=== PATIENT | female | born 1935 | race Caucasian/White ===

== ENCOUNTER 2021-05-27 21:23 | Emergency (ER) | payer BC, MEDICARE ==
[~2021-05-27] VITALS: Ht 162.6 cm; Wt 59.0 kg
--- NOTE | 2021-05-27 21:36 | NUR ---
PT BIB RA 839 FROM [facility] FOR C/O WEAKNESS DUE TO UTI. NO SOB OR LABORED BREATHING, AFEBRILE. DENIES CP/PRESSURE.
--- NOTE | 2021-05-27 21:52 | NUR ---
DR. NGUYEN A BEDSIDE, MSE IN PROGRESS.
[2021-05-27] MEDS ORDERED: ACETAMINOPHEN ES 500 MG TABLET PO ONE (22:00)
[2021-05-27 22:10] LABS: HEMATOCRIT 32.6 % (31.2-41.9); MEAN CORPUSCULAR HEMOGLOBIN 30.1 uug (24.7-32.8); MEAN CORPUSCULAR VOLUME 87.9 fL (75.5-95.3); PLATELET COUNT (AUTO) 124 K/uL (179-408)
[2021-05-27 22:19] LABS: CREATININE 1.1 mg/dL (0.6-1.3); POTASSIUM 3.2 mmol/L (3.5-5.1)
[2021-05-27 22:31] LABS: BILIRUBIN,DIRECT 0.3 mg/dL (0.0-0.2); BILIRUBIN,TOTAL 0.7 mg/dL (0.2-1.0); TOTAL PROTEIN, SERUM 6.1 g/dL (6.4-8.2)
--- NOTE | 2021-05-27 23:36 | NUR ---
PT AWAKE AND RESTING IN BED, NOTED TO BE WATCHING TV. DENIES ANY PAIN/DISCOMFORT.
[2021-05-27] MEDS ORDERED: ACETAMINOPHEN ES 500 MG TABLET ONE (23:38)
[2021-05-27 23:51] LABS: *BILIRUBIN,URIN NEGATIVE (NEGATIVE); *BLOOD, URINE 2+ (NEGATIVE); *CLARITY,URINE CLOUDY (CLEAR); *COLOR,URINE YELLOW (YELLOW); *KETONES,URINE NEGATIVE (NEGATIVE); LEUKOCYTE ESTERASE ,URINE 2+ (NEGATIVE); NITRITE, URINE POSITIVE (NEGATIVE); UGLUCOSE NEGATIVE (NEGATIVE)
[2021-05-28 00:04] LABS: BACTERIA,URINE MANY /HPF (NONE SEEN); SQUAMOUS EPITHELIAL CELL,UR FEW /HPF (NONE SEEN); WBC,URINE TNTC /HPF (0-3)
[2021-05-28] MEDS ORDERED: NITROFURANTOIN/NITROFURAN MAC 100 MG CAPSULE PO ONE ×2 (00:15→00:30)
[2021-05-28] MEDS ORDERED: CEFTRIAXONE 1 G in IV DEXTROSE 5% 50 ML IV ONE (00:15)
[2021-05-28] MEDS ORDERED: CEFTRIAXONE /D5W 50ML IVPB **ER PYXIS IV ONE (00:30)
[2021-05-28] MEDS ORDERED: IV NORMAL SALINE 500 ML BAG IV ONE (00:45)
[2021-05-28] MEDS ORDERED: NITR-84 PO (00:47)
[2021-05-28] MEDS ORDERED: CEPH500T PO (00:47)
--- NOTE | 2021-05-28 01:18 | NUR ---
Patient discharged to home in stable condition. Written and verbal after care instructions given. Patient verbalizes understanding of instructions. Stressed follow up or return to ER for worsening s/s. Steady gait. Picked up by sister and daugther in law. Denies any pain/discomfort. No n/v/d.
[2021-05-28 01:52] VITALS: BP 128/68
== END 2021-05-28 01:30 ==
LOC: ER 21:26
DX: N39.0 Urinary tract infection, site not specified (principal); G30.9 Alzheimer's disease, unspecified; F02.80 Dementia in other diseases classified elsewhere, unspecified severity, without behavioral disturbance, psychotic disturbance, mood disturbance, and anxiety; K21.9 Gastro-esophageal reflux disease without esophagitis; R50.9 Fever, unspecified; Z20.822 Contact with and (suspected) exposure to COVID-19; Z88.0 Allergy status to penicillin; Z88.2 Allergy status to sulfonamides; I49.1 Atrial premature depolarization
CPT/HCPCS: 36415; 71045; 80048; 80076; 81001; 83880; 84484; 85025; 85379; 85730; 87086; 87426; 93005; 96361; 96374; 99285; J0696; 70030-TC; A4663; A9150; C1758; J7040

== ENCOUNTER 2021-08-09 12:34 | Inpatient (IN) | payer BC ==
[~2021-08-09] VITALS: Ht 162.6 cm; Wt 44.0 kg
[~2021-08-09 12:34] MED LIST: CEPH500T PO; NITR-84 PO
[2021-08-09] MEDS ORDERED: MORPHINE SULFATE 2 MG/1 ML DISP.SYRIN IV ONE ×3 (13:00→18:15)
[2021-08-09] MEDS ORDERED: ONDANSETRON 4 MG/2 ML VIAL IV ONE (13:00)
[2021-08-09] MEDS ORDERED: IV NORMAL SALINE 500 ML BAG IV ONE (13:00)
[2021-08-09] MEDS ORDERED: AMLO-212 PO (13:05)
[2021-08-09] MEDS ORDERED: FLUO40CA8 PO (13:05)
[2021-08-09] MEDS ORDERED: CRANBERRY TAB PO (13:05)
[2021-08-09] MEDS ORDERED: ASPI81TA31 PO (13:05)
[2021-08-09] MEDS ORDERED: MIRT-93 PO (13:05)
[2021-08-09] MEDS ORDERED: LOSA100T31 PO (13:05)
[2021-08-09] MEDS ORDERED: ASCO-375 PO (13:05)
[2021-08-09] MEDS ORDERED: GALA4TAB11 PO (13:05)
[2021-08-09] MEDS ORDERED: ACET-73 PO (13:05)
[2021-08-09] MEDS ORDERED: ZINC56.713 TP (13:05)
[2021-08-09] MEDS ORDERED: CHOL10005 PO (13:05)
[2021-08-09] MEDS ORDERED: PANT40TA49 PO (13:05)
[2021-08-09] MEDS ORDERED: FOLI1TAB94 PO (13:05)
[2021-08-09] MEDS ORDERED: MORPHINE SULFATE 2 MG/1 ML DISP.SYRIN ONE ×3 (13:34→18:15)
[2021-08-09] MEDS ORDERED: ONDANSETRON 4 MG/2 ML VIAL ONE ×2 (13:34→15:02)
[2021-08-09 13:36] LABS: HEMATOCRIT 27.9 % (31.2-41.9); MEAN CORPUSCULAR VOLUME 89.6 fL (75.5-95.3); PLATELET COUNT (AUTO) 178 K/uL (179-408)
[2021-08-09 13:37] LABS: CREATININE 0.9 mg/dL (0.6-1.3); POTASSIUM 3.9 mmol/L (3.5-5.1)
[2021-08-09 13:42] LABS: BILIRUBIN,DIRECT 0.2 mg/dL (0.0-0.2); BILIRUBIN,TOTAL 0.6 mg/dL (0.2-1.0); TOTAL PROTEIN, SERUM 6.2 g/dL (6.4-8.2)
--- NOTE | 2021-08-09 13:55 | NUR ---
XR done at bedside. Pt taken for CT scan via gurney by tech. Pt in stable condition at time of transport. Unable to place hutson before transport. Ok to cancel order per provider.
--- NOTE | 2021-08-09 14:10 | NUR ---
Pt brought back from CT. Pt denies any pain at this time. Son at bedside.
[2021-08-09] MEDS ORDERED: ACETAMINOPHEN 325 MG TABLET PO PRN (15:00)
[2021-08-09] MEDS ORDERED: MAGNESIUM HYDROXIDE 30 ML LIQUID UDC PO PRN (15:00)
[2021-08-09] MEDS ORDERED: ONDANSETRON 4 MG/2 ML VIAL IV PRN (15:00)
[2021-08-09] MEDS ORDERED: REMEDY ESSENTIAL ZINC PASTE 113 GM TP PRN (15:00)
--- NOTE | 2021-08-09 15:00 | NUR ---
Pt accepted by [facility] ([facility]). Both spoke with Dr. Toledo.
[2021-08-09] MEDS ORDERED: DEXAMETHASONE SOD PHOSPHATE 4 MG INJ ONE (15:02)
[2021-08-09] MEDS ORDERED: KETOROLAC TROMETHAMINE 30 MG INJ ONE (15:02)
[2021-08-09] MEDS ORDERED: CEFAZOLIN 1 G VIAL ONE (15:02)
[2021-08-09] MEDS ORDERED: ETOMIDATE 20 MG/10 ML VIAL ONE (15:02)
[2021-08-09] MEDS ORDERED: LIDOCAINE-MPF 2% 5 ML VIAL ONE (15:02)
[2021-08-09] MEDS ORDERED: PROPOFOL 200 MG/20 ML BOTTLE ONE (15:02)
[2021-08-09] MEDS ORDERED: EPHEDRINE SULFATE 50 MG/ML AMPUL ONE (15:02)
--- NOTE | 2021-08-09 18:04 | NUR ---
Pt states slight improvement, but still has pain to (L) hip area. Provider notified.
--- NOTE | 2021-08-09 19:15 | NUR ---
[facility]ie[facility] using SBAR method. Pt is AAOx3, slightly pale with good appearance. Pt is still very much feeling the MS. Denies any pain, n/v, sob, dizziness. VSS, SBP slightly elevated, EDMD aware. Nothing pending, pt in holding position awaitng room assignment, admitted for femoral head fx, scheduled for surger in am. no s/sx of distress present.
--- NOTE | 2021-08-09 19:20 | NUR ---
Pt endorsed to shiftman
--- NOTE | 2021-08-09 20:10 | NUR ---
Admitting called with room assignment. Pt going to room 317.
--- NOTE | 2021-08-09 20:12 | NUR ---
Called tele floor to give report. US told me that RN is busy and would call back soon. I said ill be anticipating a call back.
[2021-08-09] MEDS: MIRTAZAPINE 15 MG TABLET PO SCH ×2 (21:00→22:36)
--- NOTE | 2021-08-09 21:00 | NUR ---
TeleRN Paula called back to recieve report. Thorough report given using SBAR method. Given green light to transport pt.
[2021-08-09 22:00] VITALS: BP 152/58
--- NOTE | 2021-08-09 22:00 | NUR ---
Pt transfered upstairs without difficulty. Pt placed on bed with help from FOOD ANALYST. Asisted withtaking pic of sacral area. Pt aaox3, in good spirit, denies pain, n/v, sob, or discomfort. Slight pain with movement. No s/sxof distress noted.
[2021-08-09] MEDS: IV D5W-0.45% NS +20 KCL 1,000 ML IV PRN (23:17)
[2021-08-09 23:30] VITALS: BP 142/78
[2021-08-10] VITALS (8 sets, daily range): BP systolic 115–153; BP diastolic 50–58
[2021-08-10 00:45] LABS: *BILIRUBIN,URIN NEGATIVE (NEGATIVE); *CLARITY,URINE CLOUDY (CLEAR); *COLOR,URINE YELLOW (YELLOW); *KETONES,URINE NEGATIVE (NEGATIVE); *UROBILINOGEN,URINE 0.2 E.U./dl (NORMAL); LEUKOCYTE ESTERASE ,URINE 2+ (NEGATIVE); NITRITE, URINE POSITIVE (NEGATIVE); PH,URINE 5.5 (5.0-8.0); UGLUCOSE NEGATIVE (NEGATIVE)
[2021-08-10 00:54] LABS: *BLOOD, URINE TRACE (NEGATIVE)
[2021-08-10 00:59] LABS: BACTERIA,URINE MANY /HPF (NONE SEEN); SQUAMOUS EPITHELIAL CELL,UR FEW /HPF (NONE SEEN); WBC,URINE TNTC /HPF (0-3)
[2021-08-10 06:28] LABS: HEMATOCRIT 24.8 % (31.2-41.9); MEAN CORPUSCULAR HEMOGLOBIN 29.9 uug (24.7-32.8); MEAN CORPUSCULAR VOLUME 89.5 fL (75.5-95.3); PLATELET COUNT (AUTO) 166 K/uL (179-408)
[2021-08-10] MEDS: PANTOPRAZOLE SODIUM 40 MG TABLET.DR PO SCH (06:34)
--- NOTE | 2021-08-10 06:56 | NUR ---
Pt arrived at 2140 via gurney for L intertrochanter fx. On room air saturating at 98%. AO x 2, forgetful and confused. No signs of acute distress noted. NPO status. F/C in place, draining well. Planned sx 08/10/21 at 11:[address] Alex for ORIF of Left hip intramedullary nail. IV in right FA running D5W 07/12 NS + 20 meq KCL at 75mls/hr, tolerating. Slept through the night. Easily arousable to name and touch. Call lights within reach. Safety measures maintained. Admission packet completed. Will endorse to am shift.
[2021-08-10 06:59] LABS: CREATININE 0.7 mg/dL (0.6-1.3); MAGNESIUM 1.9 mg/dL (1.8-2.4); PHOSPHOROUS 3.5 mg/dL (2.5-4.9); POTASSIUM 4.2 mmol/L (3.5-5.1)
--- NOTE | 2021-08-10 08:00 | NUR ---
Preop checklist done. PT left leg shorter than the right and externally rotated. Applied ice on left hip for pain management. IVF infusing as ordered. on right forearm #20. Consent signed for surgery.
--- NOTE | 2021-08-10 08:00 | NUR ---
Fall precaution implemented. Mittens on. Pt attempting to pull his iv out. Bed alarm on. PT confused. PT was able to take pills crushed with apple sauce with ST at bedside evaluation. Turned pt q 2 hrs implemented. Call light is within reach. Addendum: 08/10/21 at 1852 by SULAIMAN GOLDSTEIN RN Wrong pt
[2021-08-10] MEDS: FLUOXETINE HCL 20 MG CAPSULE PO SCH (08:42)
[2021-08-10] MEDS: AMLODIPINE 5 MG TABLET PO SCH (08:43)
[2021-08-10] MEDS: CHOLECALCIFEROL 1,000 UNIT TABLET PO SCH (08:43)
[2021-08-10] MEDS: FOLIC ACID 1 MG TABLET PO SCH (08:44)
[2021-08-10] MEDS: ASCORBIC ACID 500 MG TABLET PO SCH (08:44)
[2021-08-10] MEDS: LOSARTAN POTASSIUM 50 MG TABLET PO SCH (08:44)
[2021-08-10] MEDS: GALANTAMINE 4 MG TABLET PO SCH (08:46)
[2021-08-10] MEDS ORDERED: CRANBERRY 25000 MG PO SCH (09:00)
[2021-08-10] MEDS ORDERED: Medication Not On Formulary EA (Losartan Potassium 1 TAB) PO SCH (09:00)
[2021-08-10] MEDS ORDERED: Medication Not On Formulary EA (Cholecalciferol (Vitamin D3) (Vitamin D3) 1 CAP) PO SCH (09:00)
[2021-08-10] MEDS ORDERED: BUPIVACAINE 0.25% 30 ML VIAL ONE (10:27)
[2021-08-10] MEDS: MORPHINE SULFATE 2 MG/1 ML DISP.SYRIN IV PRN (10:53)
--- NOTE | 2021-08-10 11:15 | NUR ---
Pt picked up by surgery team. Pt given Morphine for pain management. Liban reid (DPOA) signed consent and notified of DNR status reversal.
[2021-08-10] MEDS ORDERED: FENTANYL CITRATE 100 MCG/2 ML AMPUL ONE (11:27)
--- NOTE | 2021-08-10 14:00 | NUR ---
Family at bed side. PT didn't eat much poor appetite. Aspiration precaution implemented. Addendum: 08/10/21 at 1853 by SULAIMAN GOLDSTEIN RN notes not for this patient.
[2021-08-10] MEDS: CIPROFLOXACIN IV 200 MG in PREMIXED 1 EACH IV SCH ×2 (14:15→20:04)
[2021-08-10 14:37] LABS: HEMATOCRIT 23.4 % (31.2-41.9)
--- NOTE | 2021-08-10 15:30 | NUR ---
pt returned back from surgery. VSS. PT on o2 @ 2 lit with 97% o2 sat. Pt able to wiggle her toes and feel sensation. Pt back at her baseline A/O x2 forgetfull. PORTIA son at bedside.
[2021-08-10] MEDS ORDERED: DOCUSATE SODIUM 100 MG CAPSULE PO PRN (17:00)
[2021-08-10] MEDS ORDERED: BISACODYL 10 MG SUPP.RECT RC PRN (17:00)
[2021-08-10] MEDS: ASPIRIN 81 MG TAB.CHEW PO SCH (17:22)
--- NOTE | 2021-08-10 18:36 | NUR ---
f/u call made to [facility] clarified order for epogen. No epogen available. Addendum: 08/10/21 at 1851 by SULAIMAN GOLDSTEIN RN wrong pt
--- NOTE | 2021-08-10 20:43 | NUR ---
PATIENT AWAKE ALERT BUT FORGETFUL, INFUSING 1 UNIT PRBC TOLERATE WELL NO ADVERSE REACTION NOTED, NO ITCHING NO RASHES NOTED, CONT TO MONITOR.
[2021-08-10] MEDS: MIRTAZAPINE 15 MG TABLET PO SCH (21:09)
--- NOTE | 2021-08-10 23:28 | NUR ---
TRANSFUSED 1 UNIT PRBC TOLERATE WELL, NO ADVERSE REACTION NOTED, CONT TO MONITOR.
[2021-08-11] MEDS: HYDROCODONE/APAP 5-325MG TABLET PO PRN ×2 (02:14→21:32)
[2021-08-11 04:00] VITALS: BP 157/66
[2021-08-11] MEDS: PANTOPRAZOLE SODIUM 40 MG TABLET.DR PO SCH (06:37)
--- NOTE | 2021-08-11 06:58 | NUR ---
PATIENT ALERT BUT FORGETFUL, NO SOB NO CHEST PAIN, DENIES PAIN AT THIS TIME. PATIENT LEFT HIP ORIGINAL DRESSING INTACT, NO DRAINAGE NOTED, PATIENT HAS EPISODE OF NON COOPERATIVE WITH CARE, CONT TO MONITOR.
[2021-08-11] MEDS: ASPIRIN 81 MG TAB.CHEW PO SCH (07:44)
[2021-08-11] MEDS: FLUOXETINE HCL 20 MG CAPSULE PO SCH (07:44)
[2021-08-11] MEDS: CHOLECALCIFEROL 1,000 UNIT TABLET PO SCH (07:44)
[2021-08-11] MEDS: ASCORBIC ACID 500 MG TABLET PO SCH (07:44)
[2021-08-11] MEDS: FOLIC ACID 1 MG TABLET PO SCH (07:44)
[2021-08-11] MEDS: LOSARTAN POTASSIUM 50 MG TABLET PO SCH (07:48)
[2021-08-11] MEDS: AMLODIPINE 5 MG TABLET PO SCH (07:49)
--- NOTE | 2021-08-11 08:00 | NUR ---
Pt forgetful. Bed Alarm on. Fall precaution implemented. Call light is within reach. Dressing on left hip intact. [place] noted no redness noted
[2021-08-11] MEDS: GALANTAMINE 4 MG TABLET PO SCH (08:37)
[2021-08-11] MEDS: CIPROFLOXACIN IV 200 MG in PREMIXED 1 EACH IV SCH ×2 (08:48→21:26)
--- NOTE | 2021-08-11 10:00 | NUR ---
Premedicated pt prior to physical therapy eval. Spoke with DR emilia aranda with PT eval weight bearing as tolerated.
[2021-08-11] MEDS: MORPHINE SULFATE 2 MG/1 ML DISP.SYRIN IV PRN (10:22)
[2021-08-11 11:25] VITALS: BP 122/55
[2021-08-11] MEDS: ENOXAPARIN SODIUM 40 MG/0.4 ML DISP.SYRIN SQ SCH (12:34)
[2021-08-11 15:35] VITALS: BP 128/65
[2021-08-11] MEDS: ENSURE ENLIVE (VAN) 240 ML LIQUID PO SCH (16:16)
[2021-08-11] MEDS: IV D5W-0.45% NS +20 KCL 1,000 ML IV PRN (17:30)
--- NOTE | 2021-08-11 18:00 | NUR ---
Pt put on soft restraint with 's order. Secondary to pt pulling out her o2 and iv. Call light is within reach.
[2021-08-11 20:00] VITALS: BP 105/82
--- NOTE | 2021-08-11 21:00 | NUR ---
PATIENT AWAKE BUT WITH CONFUSION, NO SOB NO CHEST PAIN, PATIENT HAS PAIN WHEN MOVED TURN AND REPOSITION, LEFT HIP DRESSING INTACT, BARAKAT CATH PATENT, PATIENT REMOVES OXYGEN, MULTIPLE ATTEMPT PULLING OUT IV LINES, SOFT WRIST RESTRAINTS, IN PLACE CHECK FOR PLACEMENT AND CIRCULATIONS, CONT TO MONITOR. PATIENT HAS FACIAL GRIMACY, WILL MEDICATE FOR PAIN,
[2021-08-11] MEDS: MIRTAZAPINE 15 MG TABLET PO SCH (21:32)
[2021-08-12 04:00] VITALS: BP 152/68
[2021-08-12 05:49] LABS: HEMATOCRIT 21.5 % (31.2-41.9); MEAN CORPUSCULAR HEMOGLOBIN 30.9 uug (24.7-32.8); MEAN CORPUSCULAR VOLUME 89.8 fL (75.5-95.3); PLATELET COUNT (AUTO) 146 K/uL (179-408)
[2021-08-12 06:01] LABS: CREATININE 0.8 mg/dL (0.6-1.3); MAGNESIUM 1.8 mg/dL (1.8-2.4); PHOSPHOROUS 2.4 mg/dL (2.5-4.9); POTASSIUM 4.4 mmol/L (3.5-5.1)
[2021-08-12] MEDS: PANTOPRAZOLE SODIUM 40 MG TABLET.DR PO SCH (06:42)
--- NOTE | 2021-08-12 06:56 | NUR ---
PATIENT SLEPT MOST OF THE NIGHT, COMPLAIN OF LEFT HIP PAIN WHEN MOVED AND DURING ADL'S, PATIENT BARAKAT CATH PATENT, PATIENT BILATERAL WRIST RESTRAINTS, CHECK FOR PLACEMENT, AND CIRCULATIONS, PATIENT STILL HAVE EPISODE OF PULLING OXYGEN, AND TRIES TO REMOVE IV LINES. CONT TO MONITOR.
[2021-08-12] MEDS: FOLIC ACID 1 MG TABLET PO SCH (10:05)
[2021-08-12] MEDS: CHOLECALCIFEROL 1,000 UNIT TABLET PO SCH (10:05)
[2021-08-12] MEDS: ASPIRIN 81 MG TAB.CHEW PO SCH (10:05)
[2021-08-12] MEDS: ASCORBIC ACID 500 MG TABLET PO SCH (10:06)
[2021-08-12] MEDS: ENSURE ENLIVE (VAN) 240 ML LIQUID PO SCH ×3 (10:06→17:29)
[2021-08-12] MEDS: FLUOXETINE HCL 20 MG CAPSULE PO SCH (10:06)
[2021-08-12] MEDS: ENOXAPARIN SODIUM 40 MG/0.4 ML DISP.SYRIN SQ SCH (10:07)
[2021-08-12] MEDS: AMLODIPINE 5 MG TABLET PO SCH (10:10)
[2021-08-12] MEDS: GALANTAMINE 4 MG TABLET PO SCH (10:14)
[2021-08-12 12:12] VITALS: BP 135/55
[2021-08-12] MEDS: IV D5W-0.45% NS +20 KCL 1,000 ML IV PRN (12:58)
[2021-08-12] MEDS ORDERED: NEUTRA PHOS PACKET PO ONE (14:45)
[2021-08-12 16:10] VITALS: BP 140/60
--- NOTE | 2021-08-12 18:45 | NUR ---
Spoke to Rigo Finch patient's son and gave a phone consent for blood transfusion as ordered witnessed by Yuliana GALLARDO.
[2021-08-12 20:00] VITALS: BP 118/60
[2021-08-12] MEDS: MIRTAZAPINE 15 MG TABLET PO SCH ×2 (20:54→21:00)
[2021-08-12] MEDS: CIPROFLOXACIN HCL 250 MG TABLET PO SCH ×2 (20:55→21:00)
[2021-08-13 04:00] VITALS: BP 176/64
[2021-08-13] MEDS: IV D5W-0.45% NS +20 KCL 1,000 ML IV PRN ×2 (04:54→19:29)
[2021-08-13] MEDS: MORPHINE SULFATE 2 MG/1 ML DISP.SYRIN IV PRN ×2 (05:19→15:39)
--- NOTE | 2021-08-13 05:30 | NUR ---
Pt anxious and screaming periodically throughout the night, trying to kick and bite staff. B soft wrist restraints in place, with safety checks Q15 min. Morphine given for pain. Dressing changed on L hip. IV site intact. Will endorse to day shift.
[2021-08-13] MEDS: PANTOPRAZOLE SODIUM 40 MG TABLET.DR PO SCH (06:06)
[2021-08-13 06:47] LABS: MEAN CORPUSCULAR HEMOGLOBIN 30.4 uug (24.7-32.8); MEAN CORPUSCULAR VOLUME 90.4 fL (75.5-95.3); PLATELET COUNT (AUTO) 194 K/uL (179-408)
[2021-08-13 07:18] LABS: CREATININE 0.7 mg/dL (0.6-1.3); MAGNESIUM 1.7 mg/dL (1.8-2.4); PHOSPHOROUS 2.4 mg/dL (2.5-4.9); POTASSIUM 4.2 mmol/L (3.5-5.1)
[2021-08-13] MEDS: MAGNESIUM SULFATE/D5W 100 ML IV SCH ×2 (08:31→09:42)
[2021-08-13] MEDS: ASCORBIC ACID 500 MG TABLET PO SCH (08:32)
[2021-08-13] MEDS: ASPIRIN 81 MG TAB.CHEW PO SCH (08:32)
[2021-08-13] MEDS: FOLIC ACID 1 MG TABLET PO SCH (08:32)
[2021-08-13] MEDS: FLUOXETINE HCL 20 MG CAPSULE PO SCH (08:33)
[2021-08-13] MEDS: AMLODIPINE 5 MG TABLET PO SCH (08:33)
[2021-08-13] MEDS: CHOLECALCIFEROL 1,000 UNIT TABLET PO SCH (08:33)
[2021-08-13] MEDS: CIPROFLOXACIN HCL 250 MG TABLET PO SCH ×2 (08:34→20:31)
[2021-08-13] MEDS: LOSARTAN POTASSIUM 50 MG TABLET PO SCH (08:34)
[2021-08-13] MEDS: GALANTAMINE 4 MG TABLET PO SCH (08:35)
[2021-08-13] MEDS: ENOXAPARIN SODIUM 40 MG/0.4 ML DISP.SYRIN SQ SCH (08:37)
[2021-08-13] MEDS: ENSURE ENLIVE (VAN) 240 ML LIQUID PO SCH ×3 (08:43→17:21)
[2021-08-13 11:25] VITALS: BP 138/55
--- NOTE | 2021-08-13 15:34 | NUR ---
Pt anxious and screaming while being reposition, trying to kick and bite staff. B soft wrist restraints in place, with safety checks Q15 min. Morphine 1 mg given 0.5 ml and wasted 1 mg 0.5 ml for pain gas distribution supervisor made aware. Dressing changed on L hip. IV site intact.
[2021-08-13] MEDS ORDERED: NEUTRA PHOS PACKET PO ONE (15:45)
[2021-08-13 16:00] VITALS: BP 127/54
[2021-08-13 20:00] VITALS: BP 124/53
[2021-08-13] MEDS: MIRTAZAPINE 15 MG TABLET PO SCH (20:31)
[2021-08-14 04:00] VITALS: BP 147/47
[2021-08-14] MEDS: PANTOPRAZOLE SODIUM 40 MG TABLET.DR PO SCH (06:12)
[2021-08-14 06:33] LABS: HEMATOCRIT 24.9 % (31.2-41.9); MEAN CORPUSCULAR HEMOGLOBIN 30.5 uug (24.7-32.8); PLATELET COUNT (AUTO) 237 K/uL (179-408)
[2021-08-14 07:13] LABS: CREATININE 0.6 mg/dL (0.6-1.3); MAGNESIUM 2.2 mg/dL (1.8-2.4); PHOSPHOROUS 3.1 mg/dL (2.5-4.9); POTASSIUM 4.3 mmol/L (3.5-5.1)
[2021-08-14] MEDS: ASPIRIN 81 MG TAB.CHEW PO SCH (08:12)
[2021-08-14] MEDS: FOLIC ACID 1 MG TABLET PO SCH (08:12)
[2021-08-14] MEDS: CHOLECALCIFEROL 1,000 UNIT TABLET PO SCH (08:12)
[2021-08-14] MEDS: GALANTAMINE 4 MG TABLET PO SCH (08:13)
[2021-08-14] MEDS: CIPROFLOXACIN HCL 250 MG TABLET PO SCH (08:13)
[2021-08-14] MEDS: ASCORBIC ACID 500 MG TABLET PO SCH (08:13)
[2021-08-14] MEDS: FLUOXETINE HCL 20 MG CAPSULE PO SCH (08:13)
[2021-08-14] MEDS: ENSURE ENLIVE (VAN) 240 ML LIQUID PO SCH ×2 (08:14→12:39)
[2021-08-14] MEDS: LOSARTAN POTASSIUM 50 MG TABLET PO SCH (08:15)
[2021-08-14] MEDS: AMLODIPINE 5 MG TABLET PO SCH (08:16)
[2021-08-14] MEDS: ENOXAPARIN SODIUM 40 MG/0.4 ML DISP.SYRIN SQ SCH (08:18)
[2021-08-14] MEDS: HYDROCODONE/APAP 5-325MG TABLET PO PRN (09:10)
--- NOTE | 2021-08-14 09:34 | NUR ---
Arrived to patient resting comfortably in room. IV site intact and patent. Patient received medications well today with no signs of distress or discomfort. Patient had PT today and was able to stand with stand by assistance. Bed left in lowest position with call light within reach. Comfort measures provided.
[2021-08-14 10:58] VITALS: BP 115/56
[2021-08-14] MEDS ORDERED: ENOX40DI SQ (13:56)
[2021-08-14] MEDS ORDERED: LOSA50TA3 PO (13:56)
[2021-08-14] MEDS ORDERED: NITROFURANTOIN/NITROFURAN MAC 100 MG CAPSULE PO SCH (14:30)
[2021-08-14 15:07] VITALS: BP 147/72
--- NOTE | 2021-08-14 16:27 | NUR ---
Patient discharged from unit at 1627. IV site removed. ID bracelet removed. Patient report given to Diana Freeman Lumite Injector.
== END 2021-08-14 16:30 | DRG 480 ==
LOC: ER 12:45 → TRANSITION 19:00 → MEDSURG3 21:16
PROVIDERS: ADMIT Nurse Practitioner Acute Care; ATTEND Hospitalist
PROC: 0QS706Z Reposition Left Upper Femur with Intramedullary Internal Fixation Device, Open Approach (ICD-10-PCS; principal; 2021-08-10)
PROC: 30233N1 Transfusion of Nonautologous Red Blood Cells into Peripheral Vein, Percutaneous Approach (ICD-10-PCS; 2021-08-10)
DX: S72.142A Displaced intertrochanteric fracture of left femur, initial encounter for closed fracture (principal); G93.41 Metabolic encephalopathy; E44.0 Moderate protein-calorie malnutrition; N39.0 Urinary tract infection, site not specified; Z68.1 Body mass index [BMI] 19.9 or less, adult; R64 Cachexia; B95.2 Enterococcus as the cause of diseases classified elsewhere; B96.20 Unspecified Escherichia coli [E. coli] as the cause of diseases classified elsewhere; D64.9 Anemia, unspecified; K21.9 Gastro-esophageal reflux disease without esophagitis; Z20.822 Contact with and (suspected) exposure to COVID-19; Z87.440 Personal history of urinary (tract) infections; Z79.82 Long term (current) use of aspirin; D69.6 Thrombocytopenia, unspecified; I10 Essential (primary) hypertension; W18.30XA Fall on same level, unspecified, initial encounter; Y93.9 Activity, unspecified; Y92.89 Other specified places as the place of occurrence of the external cause; F03.90 Unspecified dementia, unspecified severity, without behavioral disturbance, psychotic disturbance, mood disturbance, and anxiety
CPT/HCPCS: 36415; 70030-TC; 70450; 71045; 72170; 73090; 73502; 73551; 73700; 83735; 84100; 85018; 85025; 85730; 86850; 86900; 86901; 86920; 87077; 87086; 93005; 93307; 97161; A4649; A4663; A6209; C1713; G0378; J0690; J1100; J1650; J1885; J2270; J2405; J3010; J3475; J3490; J7040; P9016